=== PATIENT | female | born 1995 ===

== ENCOUNTER 2021-11-22 18:10 | Inpatient (IN) | payer BC ==
[2021-11-22] MEDS ORDERED: Methylergonovine 0.2 MG/1 ML Amp IM PRN (18:38)
[2021-11-22] MEDS ORDERED: Carboprost Tromethamine 250 MCG/1 ML Amp IM PRN (18:38)
[2021-11-22] MEDS ORDERED: Water For Irrigation,Sterile 1,000 ML Container IRR PRN (18:38)
[2021-11-22] MEDS ORDERED: Tranexamic Acid 1,000 MG in Sodium Chloride 0.9% 100 ML IV PRN (18:38)
[2021-11-22] MEDS ORDERED: Misoprostol 200 MCG Tab PO PRN (18:38)
[2021-11-22] MEDS ORDERED: Sodium Chloride 0.9% 20 ML SDV IV PRN (18:38)
[2021-11-22] MEDS ORDERED: Ondansetron 4 MG/2 ML SDV IVPUSH PRN (18:38)
[2021-11-22] MEDS ORDERED: Sodium Chloride 0.9% 2.5 ML Syringe FLUSH PRN (18:38)
[2021-11-22] MEDS ORDERED: Lidocaine 1% 50 ML MDV INJECT PRN (18:38)
[2021-11-22] MEDS ORDERED: Sodium Chloride 0.9% 10 ML Syringe FLUSH PRN (18:38)
[2021-11-22] MEDS ORDERED: Terbutaline 1 MG/ML SDV SUBCUT PRN (18:38)
[2021-11-22] MEDS: Lactated Ringers 1,000 ML IV SCH ×2 (18:40→21:42)
[2021-11-22] MEDS ORDERED: Oxytocin/0.9 % Sodium Chloride 30 UNIT/500 ML BAG IV SCH ×2 (18:45)
[2021-11-22] MEDS ORDERED: ePHEDrine 50 MG/ML SDV IVPUSH PRN ×2 (20:57)
[2021-11-22] MEDS ORDERED: Ropivacaine HCl/PF 400 MG in Premix Bag 1 BAG EPIDUR SCH (21:00)
[2021-11-23] MEDS ORDERED: Lanolin 100% Cream 7 GM Tube TOP PRN (01:10)
[2021-11-23] MEDS ORDERED: Witch Hazel Medicated Pads 40/Jar TOP PRN (01:10)
[2021-11-23] MEDS ORDERED: Docusate Sodium 100 MG Cap PO PRN (01:10)
[2021-11-23] MEDS ORDERED: Acetaminophen 500 MG Tab PO PRN ×2 (01:10)
[2021-11-23] MEDS ORDERED: Benzocaine/Menthol 20%-0.5% Spray 78 GM Cannister TOP PRN (01:10)
[2021-11-23] MEDS ORDERED: Bisacodyl 10 MG Supp RECTAL PRN (01:10)
[2021-11-23] MEDS ORDERED: Ibuprofen 400 MG Tab PO PRN (01:10)
[2021-11-23] MEDS: Ibuprofen 800 MG Tab PO PRN ×2 (05:10→13:33)
[2021-11-24] MEDS: Ibuprofen 800 MG Tab PO PRN (04:01)
[2021-11-24 11:18] VITALS: BP 103/66; PULSE 68
== END 2021-11-24 10:30 | disposition home or self-care (01) | DRG 560 ==
LOC: MW.OBCHECK 18:10 → MW.OB 18:12 → MW.OBCHECK 18:38 → OBSVTOIN 11-23 00:22 → MW.OB 11-23 05:00
PROVIDERS: ADMIT Obstetrics & Gynecology; ATTEND Obstetrics & Gynecology
PROC: 10E0XZZ Delivery of Products of Conception, External Approach (ICD-10-PCS; principal; 2021-11-22)
PROC: 10907ZC Drainage of Amniotic Fluid, Therapeutic from Products of Conception, Via Natural or Artificial Opening (ICD-10-PCS; 2021-11-22)
PROC: 3E0R3BZ Introduction of Anesthetic Agent into Spinal Canal, Percutaneous Approach (ICD-10-PCS; 2021-11-22)
PROC: 00HU33Z Insertion of Infusion Device into Spinal Canal, Percutaneous Approach (ICD-10-PCS; 2021-11-22)
DX: O48.0 Post-term pregnancy (principal); Z20.822 Contact with and (suspected) exposure to COVID-19; Z3A.40 40 weeks gestation of pregnancy; Z37.0 Single live birth
CPT/HCPCS: 01967; 36415; 51702; 59025; 59409; 82803; 85014; 85018; 85027; 86592; 86850; 86900; 86901; A9270-GY; J2405; J2590; J2795; J7120; U0002

== ENCOUNTER 2024-04-07 17:55 | Emergency (ER) | payer BC ==
[2024-04-07] MEDS: Ketorolac 10 MG Tab PO STA (18:51)
[2024-04-07] MEDS: Acetaminophen 500 MG Tab PO STA (18:51)
[2024-04-07] MEDS: Sodium Chloride 0.9% 1,000 ML IV STA ×2 (19:12→21:11)
[2024-04-07] MEDS: cefTRIAXone 1 GM in Sodium Chloride 0.9% 50 ML IV STA (19:25)
[2024-04-07 19:32] LABS: BASOPHILS ABSOLUTE AUTO 0.02 K/uL (0.00-0.20); BASOPHILS PERCENT AUTO 0.4 % (0.0-1.0); EOSINOPHILS ABSOLUTE AUTO 0.02 K/uL (0.00-0.45); EOSINOPHILS PERCENT AUTO 0.4 % (0.0-6.0); HEMATOCRIT 39.8 % (37.0-47.0); HEMOGLOBIN 13.5 g/dL (12.0-16.0); IMMATURE GRAN ABSOLUTE AUTO 0.01 K/uL (0.00-0.05); IMMATURE GRAN PERCENT AUTO 0.2 % (0.0-0.4); LYMPHOCYTES ABSOLUTE AUTO 0.47 K/uL (1.00-4.80); LYMPHOCYTES PERCENT AUTO 9.3 % (24.0-44.0); MEAN CORPUSCULAR HEMOGLOBIN 29.9 pg (28.0-32.0); MEAN CORPUSCULAR HGB CONC 33.9 g/dL (32.0-36.0); MEAN CORPUSCULAR VOLUME 88.2 fL (83.0-99.0); MEAN PLATELET VOLUME 9.7 fL (9.4-12.3); MONOCYTES ABSOLUTE AUTO 0.21 K/uL (0.00-0.80); MONOCYTES PERCENT AUTO 4.2 % (0.0-8.0); NEUTROPHILS ABSOLUTE AUTO 4.32 K/uL (1.80-7.70); NEUTROPHILS PERCENT AUTO 85.5 % (41.0-71.0); PLATELET COUNT,PLT 162 K/uL (150-400); RED BLOOD CELL COUNT 4.51 M/uL (4.10-5.30); WHITE BLOOD CELL COUNT,WBC 5.05 K/uL (3.9-11.3)
[2024-04-07 19:54] LABS: A/G RATIO 1.1 (0.9-1.6); ALANINE AMINOTRANSFERASE,ALT 36 IU/L (14-63); ALBUMIN 3.8 g/dL (3.4-5.0); ALKALINE PHOSPHATASE 78 U/L (46-116); ASPARTATE AMNIOTRANSFERASE,AST 23 IU/L (15-37); BILIRUBIN TOTAL 0.5 mg/dL (0.2-1.0); BLOOD UREA NITROGEN,BUN 12 mg/dL (7.0-18.0); CALCIUM 8.6 mg/dL (8.5-10.1); CARBON DIOXIDE,CO2 24.4 mmol/L (21.0-32.0); CHLORIDE,CL 100 mmol/L (98-107); CREATININE 0.8 mg/dL (0.6-1.0); GLUCOSE RANDOM 104 mg/dL (74-106); LIPASE 35 U/L (16-77); PROTEIN TOTAL,TP 7.2 g/dL (6.4-8.2); SODIUM,NA 136 mmol/L (136-145)
[2024-04-07 20:02] LABS: ESTIMATED GFR 102 mL/min (>60)
[2024-04-07 20:23] LABS: LACTIC ACID 0.8 mmol/L (0.4-2.0)
[2024-04-07 21:00] VITALS: BP 102/60; PULSE 98
== END 2024-04-07 21:22 | disposition home or self-care (01) ==
LOC: MW.ED 17:55
DX: U07.1 COVID-19 (principal); J12.82 Pneumonia due to coronavirus disease 2019; Z88.5 Allergy status to narcotic agent; Z39.1 Encounter for care and examination of lactating mother; Z75.8 Other problems related to medical facilities and other health care
CPT/HCPCS: 36415; 71046; 80053; 83605; 83690; 84484; 84703; 85025; 87040; 93005; 96365; 96366; 99284; A9270; J0696; J3490; J7030; 93010; 99285